=== PATIENT | female | born 1955 | race Caucasian/White ===

== ENCOUNTER 2017-05-12 16:28 | Outpatient (CLI) | payer OTHER | END 2017-05-12 16:29 | disposition home or self-care (01) | LOC: BICMAMMO 16:28 | PROVIDERS: ATTEND Internal Medicine | DX: Z12.31 Encounter for screening mammogram for malignant neoplasm of breast (principal); Z80.3 Family history of malignant neoplasm of breast | CPT/HCPCS: 77063 ==